=== PATIENT | male | born 1975 | race Caucasian/White ===

== ENCOUNTER → 2020-07-09 15:18 | Outpatient (CLI) | payer BC, SELFPAY ==
--- NOTE | ~2020-07-09 | US_ITS ---
EXAMINATION: US soft tissue head and neck DATE: 07/09/2020 15:37 INDICATION: Neck nodule in the right submandibular region. TECHNIQUE: Multiple grayscale and Doppler ultrasound images of the right submandibular region of conc mila were obtained. COMPARISON: None FINDINGS: Normal appearance to the subcutaneous fat, submandibular gland and underlying musculature. No abnorma l mass or fluid collections identified. A couple normal-sized right submandibular lymph nodes are emily ntified, the largest measuring 8 mm maximal short axis diameter with central fatty hilum. The latter is positioned along the deep inferior margin of the mandible and unlikely to be discernible on palpat ion. IMPRESSION: 1. No correlate identified for the palpable abnormality of concern. No pathologically enlarged lymph nodes, abnormal masses or fluid collections. Reviewed, dictated and finalized at location B. IMPRESSION: 1. No correlate identified for the palpable abnormality of concern. No patholog ically enlarged lymph nodes, abnormal masses or fluid collections.
== END ==
PROVIDERS: PCP Family Medicine; Visit Provider Family Medicine
DX: R22.1 Localized swelling, mass and lump, neck (principal)
CPT/HCPCS: 76536

== ENCOUNTER 2022-12-17 00:38 | Day surgery (SDC) | payer OTHER, SELFPAY ==
[2022-12-03 12:40] VITALS: BMI 25.8
[2022-12-17 06:44] VITALS: BP 105/73; PULSE 79; RESP 18; TEMP 36.2; O2SAT 100
[2022-12-17] MEDS: LACTATED RINGERS 1,000 ML 150 ML IV CONT (06:49)
--- NOTE | 2022-12-17 07:33 | WPDANESEPPF ---
Anes - Initial Pre Proc Eval Procedure: Operation Date: 12/17/22 08:00 Proposed Procedures p Screening Colonoscopy - Adama Carmona MD Date/Time: 12/17/22 07:33 Surgeon: Adama Carmona MD Pre Op Diagnosis: neoplasm screening Patient Data Age: 47 Gender: M Height: 1.85 m Weight: 87 kg Last Vital Signs Temp 97.2 F L 12/17/22 06:44 Pulse 79 12/17/22 06:44 Resp 18 12/17/22 06:44 BP 105/73 12/17/22 06:44 Pulse Ox 100 12/17/22 06:44 O2 Del Method Room Air 12/17/22 06:44 Allergies Allergy/AdvReac Type Severity Reaction Status Date / Time No Known Allergies Allergy Unknown Verified 12/17/22 06:44 Home Medications Medication Instructions Recorded Confirmed Type cholecalciferol (vitamin D3) 50 2,000 unit PO DAILY 09/30/19 12/17/22 History mcg (2,000 unit) tablet ascorbic acid (vitamin C) 500 mg 1,000 mg PO .QD 10/29/21 12/17/22 History capsule cyanocobalamin (vitamin B-12) 1,000 mcg PO DAILY 10/29/21 12/17/22 History 1,000 mcg capsule Patient hx anesthesia problems: none Family hx anesthesia problems: none Results Review: All pre-operative results and documents have been reviewed as part of the pre-operative evaluation. [facility] Past Medical History Medical History BMI 25.0-25.9,adult Encounter for screening for lipid disorder Encounter for screening for malignant neoplasm of prostate Lymphadenopathy Routine health maintenance Family History Family History Father Cerebrovascular accident Other Carcinoma of colon Hypertension Social History Social History Smoking status: Never smoker Alcohol intake: current Alcohol use details: 2 drinks monthly Substance use type: does not use Living arrangements: with family Spiritual care concerns: No Anes - Eval Final PreProcedure Day of Procedure 12/17/22 07:33 Patient weight: normal Heart: regular rate and rhythm Lungs: clear to auscultation Airway: Mallampati scale class II Neurological: alert and oriented Last oral intake: >/= 8 hours ASA classification: I Emergent: no Anesthetic plan: proceed Anesthesia type and monitoring: general GIVS and standard monitoring Results Review: All pre-operative results and documents have been reviewed as part of the pre-operative evaluation. Informed Consent: The patient's anesthetic plan and its attendant risks and benefits were discussed with the patient/family/POA. Questions were solicited and answers provided to the satisfaction of the patient/family/POA.
--- NOTE | 2022-12-17 07:58 | PM.HPGS ---
History of Present Illness History of Present Illness Consent: Risks, benefits, and alternatives have been discussed and questions answered. Patient agrees to proceed with procedure. Chief complaint: neoplasm screening Narrative: Mukund Rey is a 47 year old male here for first screening colonoscopy Review of Systems Constitutional: Constitutional: Denies headache(s) and Denies weakness Eyes: Eyes: Denies blurry vision ENT: Reports Normal hearing present, Denies headache(s) and Denies neck pain Cardiovascular: Cardiovascular: Denies chest pain and Denies dyspnea Respiratory: Respiratory: Denies dyspnea Gastrointestinal: Gastrointestinal: Reports no additional gastrointestinal complaints Genitourinary: Genitourinary: Denies dysuria Musculoskeletal: Musculoskeletal: Denies neck pain Integumentary/Breasts: Skin/Breast: Denies dry skin Neurologic: Reports Normal hearing present, Denies headache(s) and Denies weakness Psychiatric: Psychiatric: Denies anxiety Endocrine: Endocrine: Denies change in body appearance Hematologic/Lymphatic: Hematologic/Lymphatic: Denies easy bleeding Allergic/Immunologic: Allergic/Immunologic: Denies urticaria PMFSH Past Medical History Medical History BMI 25.0-25.9,adult Encounter for screening for lipid disorder Encounter for screening for malignant neoplasm of prostate Lymphadenopathy Routine health maintenance Family History Family History Father Cerebrovascular accident Other Carcinoma of colon Hypertension Social History Social History Smoking status: Never smoker Alcohol intake: current Alcohol use details: 2 drinks monthly Substance use type: does not use Living arrangements: with family Spiritual care concerns: No Meds Home Medications and Allergies Home Medications Medication Instructions Recorded Confirmed Type cholecalciferol (vitamin D3) 50 2,000 unit PO DAILY 09/30/19 12/17/22 History mcg (2,000 unit) tablet ascorbic acid (vitamin C) 500 mg 1,000 mg PO .QD 10/29/21 12/17/22 History capsule cyanocobalamin (vitamin B-12) 1,000 mcg PO DAILY 10/29/21 12/17/22 History 1,000 mcg capsule Allergies Allergy/AdvReac Type Severity Reaction Status Date / Time No Known Allergies Allergy Unknown Verified 12/17/22 06:44 Vital Signs Vital Signs - 24 hr 12/17/22 06:44 Temperature 97.2 F L Pulse Rate 79 Respiratory Rate 18 Blood Pressure 105/73 Pulse Oximetry 100 Oxygen Delivery Room Air Exam Const: General: comfortable and no acute distress HENMT: Face/Nose/Sinus: Normal nares present Eyes: General: appearance normal, both eyes and all related structures Neck: Neck: no JVD Resp: Auscultation: clear to auscultation bilaterally Cardio: Rate: regular rate Rhythm: regular rhythm GI: Inspection: non-distended GI Palp: Yes Soft to palpation Skin: General skin exam: normal color Neuro: General: gait normal Speech: normal speech Extrem: General: normal to inspection Psych: Mental Status: mental status grossly normal Assessment and Plan Assessment and plan (1) Screening for colon cancer: Code(s): Z12.11 - Encounter for screening for malignant neoplasm of colon Status: Acute Assessment and Plan: colonoscopy
[2022-12-17 08:21] VITALS: BP 87/58; PULSE 75; RESP 17; O2SAT 97
[2022-12-17 08:31] VITALS: BP 92/50; PULSE 73; RESP 21; O2SAT 98
[2022-12-17 08:41] VITALS: BP 102/69; PULSE 66; RESP 20; O2SAT 100
== END 2022-12-17 08:53 | disposition home or self-care (01) ==
PROVIDERS: PCP Family Medicine; Visit Provider Internal Medicine Gastroenterology
PROC: 0DJD8ZZ Inspection of Lower Intestinal Tract, Via Natural or Artificial Opening Endoscopic (ICD-10-PCS; CPT 45378; principal; 2022-12-17 08:00)
DX: Z12.11 Encounter for screening for malignant neoplasm of colon (principal); D12.5 Benign neoplasm of sigmoid colon; K57.30 Diverticulosis of large intestine without perforation or abscess without bleeding; K64.8 Other hemorrhoids
CPT/HCPCS: 45385; 88305; J2704; J7120